=== PATIENT | female | born 2000 | race Caucasian/White ===

== ENCOUNTER 2021-01-29 06:51 | Emergency (ER) | payer OTHER ==
[~2021-01-29 06:51] MED LIST: CYCLOBENZAPRINE10 MG PO; IBUPROFEN800 MG PO; LODINE400 MG PO; MOTRIN600 MG PO; PERCOCET 5-3251 EACH PO; ZOFRAN4 MG SL
== END 2021-01-29 08:23 | disposition home or self-care (01) ==
LOC: FER 06:51
DX: S63.612A Unspecified sprain of right middle finger, initial encounter (principal); F17.200 Nicotine dependence, unspecified, uncomplicated; W19.XXXA Unspecified fall, initial encounter; Y92.009 Unspecified place in unspecified non-institutional (private) residence as the place of occurrence of the external cause
CPT/HCPCS: 73130

== ENCOUNTER 2021-03-03 21:10 | Emergency (ER) | payer OTHER ==
[2021-03-04] MEDS ORDERED: KEFLEX250 MG PO (01:23)
== END 2021-03-04 01:27 | disposition home or self-care (01) ==
LOC: FER 21:10
DX: S61.310A Laceration without foreign body of right index finger with damage to nail, initial encounter (principal); F17.290 Nicotine dependence, other tobacco product, uncomplicated; W23.0XXA Caught, crushed, jammed, or pinched between moving objects, initial encounter; Y92.89 Other specified places as the place of occurrence of the external cause; Y99.0 Civilian activity done for income or pay
CPT/HCPCS: 73140